=== PATIENT | male | born 1935 | race Caucasian/White ===

== ENCOUNTER 2020-12-19 12:04 | Emergency (ER) | payer MEDICARE, BC ==
[~2020-12-19] VITALS: Ht 182.9 cm; Wt 86.2 kg
[2020-12-19 12:17] VITALS: BP 147/99
[2020-12-19 12:37] LABS: BASOPHILS # (AUTO) 0.1 K/uL (0.0-0.2); BASOPHILS % (AUTO) 0.6 % (0.0-2.0); EOSINOPHILS % (AUTO) 0.2 % (0.0-6.0); HEMATOCRIT 38 % (39-51); HEMOGLOBIN 12.5 g/dL (13.5-17.5); MEAN CORPUSCULAR HGB CONC 33 g/dl (31.0-36.0); MEAN CORPUSCULAR VOLUME 87 fL (80-96); MONOCYTES # (AUTO) 0.9 K/uL (0.1-1.30); MONOCYTES % (AUTO) 8.4 % (2.0-12.0); NEUTROPHILS # (AUTO) 9.2 K/uL (1.8-8.9); NEUTROPHILS % (AUTO) 81.8 % (43.0-81.0); PLATELET COUNT (AUTO) 213 K/uL (150-450); RED BLOOD CELL COUNT(AUTO) 4.39 MIL/uL (4.5-6.0); WHITE BLOOD COUNT (AUTO) 11.2 K/uL (4.3-11.0)
--- NOTE | 2020-12-19 13:06 | NUR ---
Patient discharged to home in stable condition. Written and verbal after care instructions given. Patient verbalizes understanding of instruction. Pt ambulatory with a steady gait
== END 2020-12-19 13:07 | disposition home or self-care (01) ==
LOC: ER 12:04
DX: I97.620 Postprocedural hemorrhage of a circulatory system organ or structure following other procedure (principal); Z95.818 Presence of other cardiac implants and grafts
CPT/HCPCS: 36415; 85025-TC; 85610-TC; 85730-TC

== ENCOUNTER 2021-05-22 10:32 | Emergency (ER) | payer MEDICARE, BC ==
[~2021-05-22] VITALS: Ht 182.9 cm; Wt 82.1 kg
--- NOTE | 2021-05-22 10:45 | NUR ---
PT CAME TO ER C/O NOSE BLEEDING SINCE 1 HR AGO. AAOX4, AMBULATORY, BREATING EVEN AND UNLABORED. ON MONITOR BP 142/94. VS STABLE. MD AT BEDSIDE
[2021-05-22] MEDS ORDERED: OXYMETAZOLINE HCL NASAL SPRAY 30 ML BOTTLE NS ONE ×2 (10:49→11:00)
[2021-05-22] MEDS ORDERED: OXYM30MI NS (10:59)
--- NOTE | 2021-05-22 11:30 | NUR ---
PT LAYING COMFORTABLY IN BED, NO ACTIVE BLEEDING. NASAL CLAMP
--- NOTE | 2021-05-22 12:05 | NUR ---
Patient discharged to home in stable condition. Written and verbal after care instructions given. Patient verbalizes understanding of instruction.
[2021-05-22 12:07] VITALS: BP 145/107
== END 2021-05-22 12:07 | disposition home or self-care (01) ==
LOC: ER 10:35
DX: R04.0 Epistaxis (principal); Z98.890 Other specified postprocedural states